=== PATIENT | male | born 1945 | race Caucasian/White ===

== ENCOUNTER → 2017-07-16 | Outpatient (CLI) | payer MEDICARE, OTHER | END | disposition home or self-care (01) | LOC: CFH 08:41 | PROVIDERS: ATTEND Physician Assistant | DX: M75.52 Bursitis of left shoulder (principal); M75.32 Calcific tendinitis of left shoulder; R53.1 Weakness ==

== ENCOUNTER 2019-04-23 23:00 | Emergency (ER) | payer MEDICARE, OTHER ==
[2019-04-23 23:01] VITALS: BP 187/74
[2019-04-23] MEDS ORDERED: LIDOCAINE-MPF 1%, 5ML ONE (23:29)
[2019-04-23] MEDS ORDERED: BUPIVACAINE 0.25% ONE (23:29)
[2019-04-23] MEDS ORDERED: LIDOCAINE-MPF 1%, 5ML INFIL ONE (23:30)
[2019-04-23] MEDS ORDERED: BUPIVACAINE 0.25% INFIL ONE (23:30)
== END 2019-04-23 23:55 | disposition home or self-care (01) ==
LOC: ED 23:00
DX: K08.89 Other specified disorders of teeth and supporting structures (principal); R51 Headache
CPT/HCPCS: 64400; 99284; J3490